=== PATIENT | male | born 1965 | race Caucasian/White ===

== ENCOUNTER 2020-04-23 23:58 | Emergency (ER) | payer OTHER, BC ==
--- NOTE | 2020-04-24 00:37 | CR ---
PROCEDURE INFORMATION: Exam: XR Left Foot Exam date and time: 04/24/2020 12:19 AM Age: 55 years old Clinical indication: Condition or disease; Other: Fall/pain; Additional info: Slipped TECHNIQUE: Imaging protocol: XR Left foot. Views: 1 or 2 views. COMPARISON: No relevant prior studies available. FINDINGS: Bones/joints: Normal. Soft tissues: Normal. IMPRESSION: No acute findings.
--- NOTE | 2020-04-24 00:37 | CR ---
PROCEDURE INFORMATION: Exam: XR Left Ankle Exam date and time: 04/24/2020 12:16 AM Age: 55 years old Clinical indication: Other: Fall/pain; Additional info: Slipped unveven step, 430pm. Increased pain, TECHNIQUE: Imaging protocol: XR Left ankle. Views: 3 or more views. COMPARISON: No relevant prior studies available. FINDINGS: Bones/joints: Normal. Soft tissues: Normal. IMPRESSION: No acute findings.
--- NOTE | 2020-04-24 00:43 | EDM.PDOC ---
ED [facility] GENERAL MEDICAL PROBLEM - General Chief Complaint: Lower Extremity Injury/Pain Stated Complaint: SPRAINED LEFT ANKLE PER PT Time Seen by Provider: 04/24/20 00:15 Source of Information: Reports: Patient History Limitations: Reports: No Limitations - History of Present Illness INITIAL COMMENTS - FREE TEXT/NARRATIVE: left outer foot and ankle pain after slipping on uneven pavement around 430, increased pain now, initially able to weight bear now to painful. No other injury Left Feet Pain Score (Numeric/FACES): 8 - Related Data Allergies Allergy/AdvReac Type Severity Reaction Status Date / Time No Known Allergies Allergy Verified 04/24/20 00:13 Past Medical History HEENT History: Reports: None Cardiovascular History: Reports: Bypass, Hypertension Respiratory History: Reports: None Gastrointestinal History: Reports: None Genitourinary History: Reports: None Musculoskeletal History: Reports: None Neurological History: Reports: None Psychiatric History: Reports: None Endocrine/Metabolic History: Reports: None Hematologic History: Reports: None Immunologic History: Reports: None Oncologic (Cancer) History: Reports: None Dermatologic History: Reports: None Social & Family History - Tobacco Use Tobacco Use Status *Q: Never Tobacco User - Recreational Drug Use Recreational Drug Use: No Review of Systems - Review of Systems Review Of Systems: Comprehensive ROS is negative, except as noted in HPI. ED EXAM, GENERAL - Physical Exam Exam: See Below Exam Limited By: No Limitations General Appearance: Alert, Mild Distress Eye Exam: Bilateral Eye: EOMI Ears: Normal External Exam, Hearing Grossly Normal Nose: Normal Inspection Head: Atraumatic, Normocephalic Respiratory/Chest: No Respiratory Distress, Lungs Clear Cardiovascular: Regular Rate, Rhythm Extremities: Joint Swelling ( ), Limited Range of Motion Neurological: Alert, Oriented, Normal Cognition Psychiatric: Normal Affect, Normal Mood Skin Exam: Warm, Dry, Intact, Normal Color Course - Vital Signs Last Recorded V/S: Last Vital Signs Temp 98.6 F 04/24/20 00:13 Pulse 74 04/24/20 00:13 Resp 16 04/24/20 00:13 BP 123/83 04/24/20 00:13 Pulse Ox 98 04/24/20 00:13 Departure - Departure Time of Disposition: 00:41 Disposition: Home, Self-Care 01 Condition: Good Clinical Impression: Left ankle sprain, Left foot pain - Discharge Information *PRESCRIPTION DRUG MONITORING PROGRAM REVIEWED*: No *COPY OF PRESCRIPTION DRUG MONITORING REPORT IN PATIENT OLLIE: No Instructions: Crutch Use, Adult, [id number], Foot Sprain Forms: ED Department Discharge Additional Instructions: elevate ice alternate tylenol 650mg and ibuprofen 400mg every 4 hours as needed for discomfort clinic next week to recheck if not improving weight bearing as tolerated Sepsis Event Note (ED) - Evaluation Sepsis Screening Result: No Definite Risk - Focused Exam Vital Signs: Vital Signs Temp Pulse Resp BP Pulse Ox 04/24/20 00:13 98.6 F 74 16 123/83 98
== END 2020-04-24 01:00 | disposition home or self-care (01) ==
LOC: DL.ED 23:58
DX: S93.402A Sprain of unspecified ligament of left ankle, initial encounter (principal); M79.672 Pain in left foot; I10 Essential (primary) hypertension; X50.1XXA Overexertion from prolonged static or awkward postures, initial encounter; Y93.01 Activity, walking, marching and hiking; Y92.480 Sidewalk as the place of occurrence of the external cause
CPT/HCPCS: 73610-LT; 73620-LT; 99282; 99283